=== PATIENT | female | born 1960 | race Caucasian/White ===

== ENCOUNTER 2021-05-17 10:54 | Emergency (ER) | payer OTHER ==
[~2021-05-17] VITALS: Ht 162.6 cm; Wt 56.7 kg
[2021-05-17] MEDS ORDERED: ESCITALOPRA5 MG/5 ML (11:12)
== END 2021-05-17 14:23 | disposition home or self-care (01) ==
LOC: ER 10:54
DX: S00.81XA Abrasion of other part of head, initial encounter (principal); W18.39XA Other fall on same level, initial encounter; Y92.488 Other paved roadways as the place of occurrence of the external cause